=== PATIENT | female | born 1935 | race Caucasian/White ===

== ENCOUNTER 2016-07-21 10:29 | Inpatient (IN) | payer MEDICARE, OTHER ==
[~2016-07-21] VITALS: Ht 165 cm; Wt 87.8 kg
[~2016-07-21 10:29] MED LIST: JANUVIA50 MG PO; LACTULOSE10 GM/15 M PO
[2016-07-21 11:39] LABS: HEMOGLOBIN 7.1 gm/dl (12.3-15.3); RED BLOOD COUNT 2.23 M/UL (4.00-5.10); WHITE BLOOD COUNT 4.8 K/UL (4.5-11.0)
[2016-07-21] MEDS ORDERED: EVISTA60 MG PO (22:31)
[2016-07-21] MEDS ORDERED: BUMEX 1MG TABLET1 MG PO (22:32)
[2016-07-21] MEDS ORDERED: JANUMET 50-5001 EACH PO (22:33)
[2016-07-21] MEDS ORDERED: ARICEPT5 MG PO (22:33)
[2016-07-21] MEDS ORDERED: GLUCOTROL XL 22.5 MG PO (22:33)
[2016-07-21] MEDS ORDERED: IRON325 M1 PO (22:34)
[2016-07-22 07:01] LABS: HEMOGLOBIN 7.5 gm/dl (12.3-15.3); RED BLOOD COUNT 2.39 M/UL (4.00-5.10); WHITE BLOOD COUNT 4.9 K/UL (4.5-11.0)
[2016-07-22 14:16] LABS: HEMOGLOBIN 8.4 gm/dl (12.3-15.3)
[2016-07-23 01:37] LABS: HEMOGLOBIN 7.4 gm/dl (12.3-15.3)
[2016-07-23 06:26] LABS: HEMOGLOBIN 7.1 gm/dl (12.3-15.3); RED BLOOD COUNT 2.24 M/UL (4.00-5.10); WHITE BLOOD COUNT 3.7 K/UL (4.5-11.0)
[2016-07-23 10:58] LABS: HEMOGLOBIN 7.4 gm/dl (12.3-15.3)
[2016-07-24 05:00] LABS: RED BLOOD COUNT 2.2 M/UL (4.00-5.10); WHITE BLOOD COUNT 4.3 K/UL (4.5-11.0)
[2016-07-24 11:49] LABS: HEMOGLOBIN 7.5 gm/dl (12.3-15.3)
[2016-07-25 01:07] LABS: HEMOGLOBIN 8.6 gm/dl (12.3-15.3)
[2016-07-25 05:47] LABS: HEMOGLOBIN 7.9 gm/dl (12.3-15.3); WHITE BLOOD COUNT 4.3 K/UL (4.5-11.0)
[2016-07-25 05:48] LABS: RED BLOOD COUNT 2.56 M/UL (4.00-5.10)
[2016-07-26 00:19] LABS: HEMOGLOBIN 8.4 gm/dl (12.3-15.3)
--- NOTE | 2016-07-26 04:18 | NUR ---
RECEIVED REPORT AT 0400 FROM TENA BAUER RN
[2016-07-26 12:17] LABS: HEMOGLOBIN 8.7 gm/dl (12.3-15.3)
[2016-07-27 01:00] LABS: HEMOGLOBIN 8.1 gm/dl (12.3-15.3)
[2016-07-27 05:53] LABS: HEMOGLOBIN 8.2 gm/dl (12.3-15.3); RED BLOOD COUNT 2.64 M/UL (4.00-5.10); WHITE BLOOD COUNT 3.6 K/UL (4.5-11.0)
[2016-07-27 12:17] LABS: HEMOGLOBIN 9.1 gm/dl (12.3-15.3)
[2016-07-28 01:31] LABS: HEMOGLOBIN 8.3 gm/dl (12.3-15.3)
[2016-07-28] MEDS ORDERED: LASIX40 MG PO (11:19)
[2016-07-28] MEDS ORDERED: CHRONULAC20 GM/30 M PO (11:21)
[2016-07-28] MEDS ORDERED: IMDUR ER TAB 6060 MG PO (11:22)
[2016-07-28] MEDS ORDERED: NORVASC 5 MG TAB5 MG PO (12:30)
[2016-07-28] MEDS ORDERED: CATAPRES 0.1MG0.1 MG PO (17:16)
[2016-10-26] MEDS ORDERED: BUMEX 1MG TABLET1 MG PO ×2 (21:35→21:36)
[2016-10-26] MEDS ORDERED: ECOTRIN81 MG PO (21:36)
[2016-10-26] MEDS ORDERED: OMEPRAZOLE20 M1 PO (21:36)
[2016-10-26] MEDS ORDERED: CENTRUM SILVER1 EAC4 PO (21:37)
== END 2016-07-28 18:18 | disposition home health service (06) | DRG 808 ==
LOC: ER1 10:29 → ZEROF 12:46 → MED SURG 4 12:46 → M/S 12:46 → MED SURG 4 07-25 08:00
PROVIDERS: Emergency Medicine; Family Medicine; Internal Medicine; Internal Medicine Nephrology; ADMIT Hospitalist
PROC: 30233N1 Transfusion of Nonautologous Red Blood Cells into Peripheral Vein, Percutaneous Approach (ICD-10-PCS; principal; 2016-07-24)
PROC: 0DJ08ZZ Inspection of Upper Intestinal Tract, Via Natural or Artificial Opening Endoscopic (ICD-10-PCS; 2016-07-25)
DX: D61.818 Other pancytopenia (principal); K72.00 Acute and subacute hepatic failure without coma; I50.33 Acute on chronic diastolic (congestive) heart failure; N17.9 Acute kidney failure, unspecified; E87.2 Acidosis; I13.0 Hypertensive heart and chronic kidney disease with heart failure and stage 1 through stage 4 chronic kidney disease, or unspecified chronic kidney disease; E87.3 Alkalosis; N39.0 Urinary tract infection, site not specified; K76.6 Portal hypertension; D50.9 Iron deficiency anemia, unspecified; D53.9 Nutritional anemia, unspecified; I49.5 Sick sinus syndrome; I44.0 Atrioventricular block, first degree; E11.22 Type 2 diabetes mellitus with diabetic chronic kidney disease; N18.3 Chronic kidney disease, stage 3 (moderate); R16.1 Splenomegaly, not elsewhere classified; K74.60 Unspecified cirrhosis of liver; B96.89 Other specified bacterial agents as the cause of diseases classified elsewhere; E87.5 Hyperkalemia; D69.6 Thrombocytopenia, unspecified; R06.01 Orthopnea; E78.5 Hyperlipidemia, unspecified; I27.2 Other secondary pulmonary hypertension; R55 Syncope and collapse; D63.1 Anemia in chronic kidney disease; K21.9 Gastro-esophageal reflux disease without esophagitis; D75.89 Other specified diseases of blood and blood-forming organs; R53.1 Weakness; Z91.81 History of falling; R01.1 Cardiac murmur, unspecified; H91.90 Unspecified hearing loss, unspecified ear; F03.90 Unspecified dementia, unspecified severity, without behavioral disturbance, psychotic disturbance, mood disturbance, and anxiety; Z82.49 Family history of ischemic heart disease and other diseases of the circulatory system; S00.11XA Contusion of right eyelid and periocular area, initial encounter; W18.30XA Fall on same level, unspecified, initial encounter; Y93.01 Activity, walking, marching and hiking; Y92.89 Other specified places as the place of occurrence of the external cause
CPT/HCPCS: ECHO; 36415; 36600; 70450; 71010; 73030; 73080; 76705; 80048; 80053; 80061; 81001; 82140; 82272; 82436; 82550; 82553; 82607; 82728; 82746; 82803; 82962; 83540; 83550; 83605; 83735; 83874; 83880; 84100; 84133; 84156; 84300; 84439; 84443; 84484; 85014; 85018; 85025; 85027; 85610; 85730; 86850; 86900; 86901; 86920; 87040; 87077; 87086; 87186; 93005; 93270; 93306; 93970; 97110; 97116; 97530; 99285; C9113; J0696; J1650; J1756; J1885; J1940; J2250; J7030; J7040; J7050; P9016